=== PATIENT | male | born 1960 | race Caucasian/White ===

== ENCOUNTER 2021-02-13 12:43 | Observation (INO) | payer BC ==
[~2021-02-13] VITALS: Ht 182.9 cm; Wt 108.0 kg
[2021-02-13] MEDS ORDERED: LIDOCAINE HCL 1% 20 ML VIAL ONE (12:57)
[2021-02-13] MEDS ORDERED: CEFAZOLIN SODIUM 1 GM VIAL ONE (13:49)
[2021-02-13] MEDS ORDERED: HYDROCODONE/ACETAMINOPHEN 10/325 MG TAB ONE (13:49)
[2021-02-13] MEDS ORDERED: TETANUS/DIPHTHERIA TOXOID [ADULT] 0.5 ML VIAL IM ONE (13:50)
[2021-02-13] MEDS ORDERED: LACTULOSE 20 GM/30 ML UDCUP PO PRN (14:15)
[2021-02-13] MEDS ORDERED: MORPHINE 2 MG SYG IV PRN (14:15)
[2021-02-13] MEDS ORDERED: ONDANSETRON 4MG INJ IV PRN (14:15)
[2021-02-13] MEDS ORDERED: HYDRALAZINE 20MG/ML VIAL IV PRN (14:15)
[2021-02-13] MEDS ORDERED: ACETAMINOPHEN 325 MG TAB PO PRN ×2 (14:15)
[2021-02-13 14:24] LABS: BASOPHILS % (AUTO) 0.5 % (0.0-5.0); EOSINOPHILS % (AUTO) 0.8 % (0.0-8.0); HEMATOCRIT 38.4 % (42-54); LYMPHOCYTES % (AUTO) 12.8 % (21.0-51.0); MEAN CORPUSCULAR HEMOGLOBIN 28.5 pg (27.0-33.0); MEAN CORPUSCULAR HGB CONC 33.6 g/dL (32.0-36.0); MEAN CORPUSCULAR VOLUME 84.8 fL (79-99); MONOCYTES % (AUTO) 7.6 % (3.0-13.0); NEUTROPHILS % (AUTO) 77.8 % (40.0-77.0); PLATELET COUNT (AUTO) 231 K/uL (130-400); RED BLOOD CELL COUNT(AUTO) 4.53 MIL/uL (4.50-6.20); RED CELL DISTRIBUTION WIDTH 14.4 % (11.0-15.5); WHITE BLOOD COUNT (AUTO) 7.4 K/uL (4.8-10.8)
[2021-02-13 14:37] LABS: POTASSIUM 3.6 mmol/L (3.5-5.1)
[2021-02-13 14:41] LABS: ALBUMIN 4.3 g/dL (3.5-5.0); TOTAL PROTEIN, SERUM 7.1 g/dL (6.0-8.3)
[2021-02-13] MEDS: CEFAZOLIN SODIUM 1 GM VIAL IVP SCH (16:00)
[2021-02-13 20:20] VITALS: BP 145/92
[2021-02-13] MEDS: FAMOTIDINE 20MG TAB PO SCH (21:00)
[2021-02-13] MEDS ORDERED: LISI40TA9 PO (21:17)
[2021-02-13] MEDS ORDERED: LEVO5TAB13 PO (21:17)
[2021-02-13] MEDS ORDERED: AMLO-257 PO (21:17)
[2021-02-13] MEDS ORDERED: MONT-39 PO (21:17)
[2021-02-13 23:45] VITALS: BP 144/87
[2021-02-14] VITALS (23 sets, daily range): BP systolic 82–151; BP diastolic 50–93
[2021-02-14] MEDS: CEFAZOLIN SODIUM 1 GM VIAL IVP SCH ×2 (04:28→15:47)
[2021-02-14 05:03] LABS: BASOPHILS % (AUTO) 0.5 % (0.0-5.0); EOSINOPHILS % (AUTO) 1.7 % (0.0-8.0); HEMATOCRIT 37.1 % (42-54); MEAN CORPUSCULAR HEMOGLOBIN 28.7 pg (27.0-33.0); MEAN CORPUSCULAR HGB CONC 33.7 g/dL (32.0-36.0); MEAN CORPUSCULAR VOLUME 85.3 fL (79-99); MONOCYTES % (AUTO) 10.5 % (3.0-13.0); NEUTROPHILS % (AUTO) 62.8 % (40.0-77.0); PLATELET COUNT (AUTO) 226 K/uL (130-400); RED BLOOD CELL COUNT(AUTO) 4.35 MIL/uL (4.50-6.20); RED CELL DISTRIBUTION WIDTH 14.6 % (11.0-15.5); WHITE BLOOD COUNT (AUTO) 7.6 K/uL (4.8-10.8)
[2021-02-14 05:19] LABS: POTASSIUM 3.7 mmol/L (3.5-5.1)
[2021-02-14] MEDS: FAMOTIDINE 20MG TAB PO SCH ×2 (08:22→13:09)
[2021-02-14] MEDS: ENOXAPARIN SODIUM 40 MG/0.4 ML SYRINGE SQ SCH ×2 (08:22→13:09)
[2021-02-14] MEDS ORDERED: LIDOCAINE PF 100MG/5ML (2%) SYRINGE 5ML ONE (10:38)
[2021-02-14] MEDS ORDERED: ONDANSETRON 4MG INJ ONE (10:39)
[2021-02-14] MEDS ORDERED: MIDAZOLAM HCL 1 MG/ML 2ML VIAL ONE (10:40)
[2021-02-14] MEDS ORDERED: PROPOFOL 10 MG/ML 20ML VIAL IV ONE (10:40)
[2021-02-14] MEDS ORDERED: FENTANYL CITRATE PF 50 MCG/1 ML 2ML VIAL ONE ×2 (10:40→11:36)
[2021-02-14] MEDS ORDERED: DEXAMETHASONE SOD PHOSPHATE 10MG/ML 1ML VIAL ONE (10:40)
[2021-02-14] MEDS ORDERED: MEPERIDINE-PF 25 MG/ML SYG ONE (10:40)
[2021-02-14] MEDS ORDERED: LACTATED RINGERS 1000ML 1,000 ML IV ONE (10:54)
[2021-02-14] MEDS ORDERED: CEFAZOLIN SODIUM 1 GM VIAL ONE (11:23)
[2021-02-14] MEDS ORDERED: KETOROLAC 30MG VIAL (30MG/ML) ONE (11:36)
== END 2021-02-14 18:00 | disposition home or self-care (01) ==
LOC: EDH 12:43 → EDHIP 14:14 → INTOOBSV 14:14 → 3BH 20:16
PROVIDERS: ADMIT Internal Medicine; ATTEND Internal Medicine
DX: S61.412A Laceration without foreign body of left hand, initial encounter (principal); Z20.822 Contact with and (suspected) exposure to COVID-19; S61.221A Laceration with foreign body of left index finger without damage to nail, initial encounter; I10 Essential (primary) hypertension; F17.290 Nicotine dependence, other tobacco product, uncomplicated; Z86.16 Personal history of COVID-19; Z23 Encounter for immunization; Z79.899 Other long term (current) drug therapy; W31.2XXA Contact with powered woodworking and forming machines, initial encounter; Y93.89 Activity, other specified; Y92.89 Other specified places as the place of occurrence of the external cause
CPT/HCPCS: 12005; 36415 ×2; 73130; 80048; 80053; 84484; 85025 ×2; 87426; 90471; 90714; 93005; 96372; 96374; 96375; 96376; 99285; A4222; A4223; A6446; G0168; G0378 ×27; J0690 ×4; J1100; J1650; J1885; J2001; J2175; J2250; J2405; J2704; J3010 ×2; J7030 ×2; J7120; U0003